=== PATIENT | male | born 1950 | race Caucasian/White ===

== ENCOUNTER 2022-09-02 11:39 | Outpatient (CLI) | payer MEDICARE, OTHER, SELFPAY ==
--- NOTE | ~2022-09-02 | XR_ITS ---
XR chest 2V DATE: 09/02/2022 12:04 INDICATION: Right renal cell carcinoma TECHNIQUE: PA and lateral views COMPARISON: 08/05/2019 PA and lateral chest FINDINGS: Normal heart size. No hilar or mediastinal enlargement. No pulmonary infiltrate or consolidation, pleural effusion or pulmonary vascular congestion or pneumo thorax. Diffuse idiopathic skeletal hyperostosis and dextro scoliosis of the thoracic spine. IMPRESSION: No active cardiopulmonary disease Reviewed, dictated and finalized at location A. D RECORDER
== END 2022-09-02 11:40 | disposition home or self-care (01) ==
PROVIDERS: PCP Family Medicine; Visit Provider Urology
DX: C64.1 Malignant neoplasm of right kidney, except renal pelvis (principal)
CPT/HCPCS: 71046

== ENCOUNTER 2023-09-01 08:57 | Outpatient (CLI) | payer MEDICARE, OTHER, SELFPAY ==
--- NOTE | ~2023-09-01 | XR_ITS ---
EXAMINATION: XR chest 2V DATE: 09/01/2023 09:20 INDICATION: History of renal cell carcinoma TECHNIQUE: PA and lateral views of the chest are obtained. COMPARISON: 08/06/2018 FINDINGS: There is mild atelectasis of the lung bases. No pleural effusion or pneumothorax. The cardi omediastinal silhouette is normal. There are bridging osteophytes at multiple levels in the spine, co nsistent with diffuse idiopathic skeletal hyperostosis (DISH). IMPRESSION: 1. Mild atelectasis of the lung bases. Reviewed, dictated and finalized at location B. T COORDINATOR
--- NOTE | ~2023-09-01 | CT_ITS ---
CT of the Abdomen and Pelvis: Indication: Renal cell carcinoma Technique: 2.5 mm axial scans were obtained through the abdomen and pelvis prior to and following in travenous administration of 100 cc of Omnipaque 350. Dose reduction technique was used on this scan b y utilizing automated exposure control and iterative reconstruction technique. The dose-length produc t (DLP) was 1204.64 mGy-cm. COMPARISON: 08/05/2019 Findings: Scans through the lung bases demonstrates stable subcentimeter left basilar pulmonary nodu les, and stable linear scarring at the right middle lobe and left lower lobe.. The liver, spleen, pancreas, and adrenal glands are within normal limits. Gallstones present. Left re nal cysts are present, largest at the upper pole measuring 10.5 cm in length. No solid left renal mas s or left hydronephrosis seen. There is stable probable postoperative or post ablative change at the lower pole the right kidney. No suspicious right renal mass or right hydronephrosis seen. No evidence of aortic aneurysm. No lymphadenopathy. No bowel obstruction or bowel wall thickening. There is no evidence to suggest acute appendicitis. Images through the pelvis were performed. Urinary bladder unremarkable. Prostate gland is enlarged. N o ascites. Impression: No evidence for active malignancy or metastatic disease. Stable post therapy/postsurgical change of t he right kidney. Cholelithiasis. Left renal cysts, as above. Stable subcentimeter left basilar pulmonary nodules. Stability since 2018 is consistent with benignit y. Reviewed, dictated and finalized at [facility]. RVISOR BENZENE REFINING Impression: No evidence for active malignancy or metastatic disease. Stable post therapy/po stsurgical change of the right kidney. Cholelithiasis. Left renal cysts, as above. Stable subcentimeter left basilar pulmonary nodules. Stability since 2019 is co nsistent with benignity.
[2023-09-01 09:31] LABS: Estimated Glomerular Filt Rate > 60
== END 2023-09-01 08:58 | disposition home or self-care (01) ==
PROVIDERS: PCP Family Medicine; Visit Provider Urology
DX: C64.1 Malignant neoplasm of right kidney, except renal pelvis (principal); K80.20 Calculus of gallbladder without cholecystitis without obstruction; N28.1 Cyst of kidney, acquired
CPT/HCPCS: 71046; 74178; Q9967

== ENCOUNTER 2024-09-04 12:03 | Outpatient (CLI) | payer MEDICARE, OTHER, SELFPAY ==
--- NOTE | ~2024-09-04 | XR_ITS ---
XR chest 2V Ordering provider: Maurisio Hernandez MD History: 74 years Male with . RENAL CELL CARCINOMA, ROUTINE CHECK UP, NO CHEST COMPLAINTS . Comparison: None. FINDINGS: MEDIASTINUM: The cardiac silhouette is not enlarged. LUNGS: No effusions or pneumothorax. Opacification in the right lower lobe area which may indicate at electasis versus pneumonia. Clinical correlation and follow-up advised. OTHER: No free air under the diaphragm. Degenerative changes of the spine. IMPRESSION: Opacification in the right lower lobe area. Follow-up and clinical correlation advised Reviewed, dictated and finalized at location A. S SILVERER
--- NOTE | ~2024-09-04 | CT_ITS ---
EXAMINATION: CT abdomen pelvis wo/w con DATE: 09/04/2024 13:07 INDICATION: Right renal cell carcinoma TECHNIQUE: Computed tomography (CT) of the abdomen and pelvis was performed without and with 100 mL O mnipaque-350 intravenous contrast utilizing a standard renal mass protocol. Automated exposure contro l and iterative reconstruction technique were employed. The dose-length product was 1733.76 mGy-cm. COMPARISON: 09/01/2023 and 08/06/2018 FINDINGS: Stable appearance of scattered linear discoid atelectasis/scarring in the bilateral lower lungs. Smal l calcified right lower lobe nodule consistent with old granulomatous disease. There are few small no ncalcified pulmonary nodules in the left lower lobe measuring up to 5 mm which are unchanged dating b ack to 2018 consistent with additional old granulomatous disease. Heart size is normal. Aortic valve calcification. No pericardial or pleural effusion. Couple moderate size gallstones at the neck of the otherwise normal-appearing gallbladder. No gallbladder wall thickening or pericholecystic inflammato ry stranding to suggest acute cholecystitis. Liver, spleen, pancreas and bilateral adrenal glands are normal. A couple simple appearing left renal cysts the larger measuring 12 cm stable appearance of m ild scarring with small suture line at the lower pole of the right kidney consistent with sequela of prior partial nephrectomy for reported renal cell carcinoma. No evident residual/locally recurrent di sease. Bowels including appendix are normal. Bladder is normal. Prostatomegaly. Small right and moder ate-sized left fat-containing inguinal hernias. No free intraperitoneal gas or fluid. No pathological ly enlarged abdominal or pelvic lymphadenopathy. Incidentally noted retroaortic left renal vein. Ther e are bridging osteophytes at multiple levels in the mid to lower thoracic and upper lumbar spine con sistent with diffuse idiopathic skeletal hyperostosis (DISH). Small fat-containing umbilical hernia. IMPRESSION: 1. Postoperative change of prior partial right nephrectomy for reported renal cell carcinoma with no evident residual, locally recurrent or metastatic disease. 2. Cholelithiasis. 3. Small right and moderate-sized left fat-containing inguinal hernias. 4. Prostatomegaly. Reviewed, dictated and finalized at location B. EGE INSTRUCTOR IMPRESSION: 1. Postoperative change of prior partial right nephrectomy for reported renal c ell carcinoma with no evident residual, locally recurrent or metastatic disease . 2. Cholelithiasis. 3. Small right and moderate-sized left fat-containing inguinal hernias. 4. Prostatomegaly.
[2024-09-04 13:00] LABS: Estimated Glomerular Filt Rate 60
== END 2024-09-04 12:04 | disposition home or self-care (01) ==
PROVIDERS: PCP Family Medicine; Visit Provider Urology
DX: C64.1 Malignant neoplasm of right kidney, except renal pelvis (principal); K80.20 Calculus of gallbladder without cholecystitis without obstruction; N40.0 Benign prostatic hyperplasia without lower urinary tract symptoms
CPT/HCPCS: 71046; 74178; Q9967